=== PATIENT | male | born 1985 | race Caucasian/White ===

== ENCOUNTER 2020-01-17 08:34 | Emergency (ER) | payer OTHER, SELFPAY ==
[2020-01-17 08:40] VITALS: BP 165/98; PULSE 72; RESP 14; TEMP 37.3; O2SAT 100
--- NOTE | 2020-01-17 09:00 | PC.NURSE ---
Pt reports taking 10-12 extra strength tylenol tablets in the past 24 hours. CHECK VIEWER notified. Pt reports 1 episode of vomiting prior to arrival.
--- NOTE | 2020-01-17 09:07 | ED.DENTAL ---
HPI - Dental/Oral General Chief complaint: Dental/Oral Stated complaint: tooth pain Time Seen by Provider: 01/17/20 08:45 Source: patient and RN notes reviewed Mode of arrival: ambulatory Limitations: no limitations History of Present Illness HPI Narrative: Patient presents today complaining of a one-week history of right lower dental pain, worse x2 days, swelling at the gumline. Denies fever, difficulty swallowing, shortness of breath, or any other additional symptoms. He has not seen a dentist in several years. He has been taking Tylenol without much relief. He has taken a total of 5 g of Tylenol in the last 24 hours. MD Complaint: tooth pain Related Data Home Medications Medication Instructions Recorded Confirmed cetirizine mg 01/17/20 clonidine HCl 01/17/20 Allergies Allergy/AdvReac Type Severity Reaction Status Date / Time No Known Allergies Allergy Verified 01/17/20 08:50 Review of Systems Review of Systems: Narrative: CONSTITUTIONAL: Denies body aches, fever, chills, or sweats. EYES: Denies visual changes, redness, or discharge. ENT: Denies rhinorrhea, congestion, sore throat, or otalgia.+ Tooth pain CARDIOVASCULAR: Denies chest pain, palpitations, or edema. RESPIRATORY: Denies cough or dyspnea. GASTROINTESTINAL: Denies abdominal pain, nausea, vomiting, or diarrhea. GENITOURINARY: Denies dysuria or hematuria. SKIN: Denies rash, itching, or wounds. MUSCULOSKELETAL: Denies back pain, joint pain, or myalgia. NEUROLOGIC: Denies headache, numbness, tingling, or weakness. PSYCH: Denies depression or anxiety. [facility] Past Medical History Medical History (Updated 01/17/20 @ 09:14 by Lona Segal, [facility], ) History of cardiac arrest Social History Social History (Updated 01/17/20 @ 09:10 by Lona Segal, [facility], ) Substance use: current Substance use type: marijuana Comments At time of signature, I have reviewed and agree with nursing past medical, surgical, social and family history unless otherwise noted. Please see nursing chart for further information. There is no relevant family history pertinent to the presenting complaint Exam Narrative: Exam Narrative: GENERAL: Well-appearing, well-nourished, and in no acute distress. HEAD: Normocephalic, atraumatic. EYES: EOMI. No redness or drainage. Conjunctivae normal. ENT: Mucous membranes pink and moist. Nares clear. No rhinorrhea. Throat normal. Uvula midline. Tenderness to tooth #28 with large cavity in the center. Center is black in color. Surrounding gingiva is mildly edematous and erythematous. No obvious periapical abscess. No facial swelling noted. No trismus. NECK: Normal AROM. Supple. No lymphadenopathy. CHEST: No respiratory distress. Clear to auscultation. HEART: Regular rate and rhythm. No murmur appreciated. Normal peripheral pulses. EXTREMITIES: Normal range of motion. No edema. SKIN: Warm, dry, no rash. Capillary refill normal. Normal skin turgor. NEURO: No focal deficits. Alert and oriented x3. Gait steady. PSYCH: Normal affect. No signs of depression or anxiety. Course Vital Signs Vital signs: Vital Signs Temperature 99.1 F 01/17/20 08:40 Pulse Rate 72 01/17/20 08:40 Respiratory Rate 14 01/17/20 08:40 Blood Pressure 165/98 H 01/17/20 08:40 Pulse Oximetry 100 01/17/20 08:40 Temperature 99.1 F 01/17/20 08:40 Pulse Rate 72 01/17/20 08:40 Respiratory Rate 14 01/17/20 08:40 Blood Pressure 165/98 H 01/17/20 08:40 Pulse Oximetry 100 01/17/20 08:40 Reviewed. Pt has been instructed to follow up with his PCP regarding his elevated blood pressure today. MDM - Dental/Oral Differential Diagnosis Differential diagnosis: Likely gingival abscess, dental caries, toothache, dental abscess and fracture of tooth Critical Care Time Critical Care Time Critical Care Time: No Discharge Plan Discharge Clinical Impression: Infected dental caries Patient Disposition: Home, Self
== END 2020-01-17 09:22 | disposition home or self-care (01) ==
PROVIDERS: Emergency Provider Nurse Practitioner; PCP Nurse Practitioner Family
DX: K02.9 Dental caries, unspecified (principal)
CPT/HCPCS: 99213; G0463

== ENCOUNTER 2024-03-16 16:03 | Emergency (ER) | payer OTHER, SELFPAY ==
[2024-03-16 16:08] VITALS: BP 146/97; PULSE 75; RESP 20; TEMP 37.2; O2SAT 100
--- NOTE | 2024-03-16 16:24 | ED_ITS ---
HPI - Dental/Oral General Chief complaint: Dental/Oral Stated complaint: infected tooth Time Seen by Provider: 03/16/24 16:24 Source: patient Mode of arrival: ambulatory Limitations: no limitations History of Present Illness HPI Narrative: 38 yo M presents with c/o R upper dental pain for 2 to 3 days. Has called dentist and scheduled appointment. Afebrile. All systems reviewed and negative except as noted above. Related Data Home Medications Medication Instructions Recorded Confirmed clonidine HCl 0.2 mg tablet 0.2 mg PO DIRECTED 03/16/24 03/16/24 Allergies Allergy/AdvReac Type Severity Reaction Status Date / Time No Known Allergies Allergy Verified 03/16/24 16:15 Review of Systems Review of Systems: CONSTITUTIONAL: Denies fever, chills, or sweats. EYES: Denies visual changes, redness, or discharge. ENT: Denies rhinorrhea, congestion, sore throat, or otalgia. Reports right upper dental pain. CARDIOVASCULAR: Denies chest pain, palpitations, or edema. RESPIRATORY: Denies cough or dyspnea. GASTROINTESTINAL: Denies abdominal pain, nausea, vomiting, or diarrhea. GENITOURINARY: Denies dysuria or hematuria. SKIN: Denies rash or itching. MUSCULOSKELETAL: Denies back pain, joint pain, or myalgia. NEUROLOGIC: Denies headache, numbness, or weakness. PSYCHIATRIC: Denies anxiety or depression. All other systems reviewed are negative, except as documented in HPI. [facility] Past Medical History Medical History (Updated 03/16/24 @ 16:31 by Lavonne Olvera NP) History of cardiac arrest Social History Social History (Updated 01/17/20 @ 09:10 by Lona Segal, [facility], ) Substance use: current Substance use type: marijuana Comments At time of signature, agree with nursing past medical, surgical, social and family history. There is no relevant family history pertinent to the presenting complaint. Exam Narrative: GENERAL: This is a well-nourished, well-developed patient, in no apparent distress. HEAD: normocephalic, atraumatic. EYES: PERRL. Sclera clear/white. Vision is grossly intact. EARS: External ears normal NOSE: External nose normal MOUTH: multiple broken/decayed teeth. Tooth #7, 8, 9 broken down to gumline. mile swelling noted with no fluctuance. NECK: Neck supple, non-tender without lymphadenopathy, masses or thyromegaly. CARDIOVASCULAR: Regular rate and rhythm without murmurs, gallops, or rubs. RESPIRATORY: Clear to auscultation. Breath sounds equal bilaterally. No wheezes, rales, or rhonchi. SKIN: warm, Dry, intact with no suspicious lesions or rash, good texture and turgor. NEURO: awake, alert, and oriented to person, place and time. There were no obvious focal neurologic abnormalities. EXTREMITIES: No joint tenderness, effusion, or edema noted. Course Course Level of Care: Express Care Visit Vital Signs Vital signs: Vital Signs Temperature 37.2 C 03/16/24 16:08 Pulse Rate 75 03/16/24 16:08 Respiratory Rate 20 03/16/24 16:08 Blood Pressure 146/97 H 03/16/24 16:08 Pulse Oximetry 100 03/16/24 16:08 Oxygen Delivery Room Air 03/16/24 16:08 Temperature 37.2 C 03/16/24 16:08 Pulse Rate 75 03/16/24 16:08 Respiratory Rate 20 03/16/24 16:08 Blood Pressure 146/97 H 03/16/24 16:08 Pulse Oximetry 100 03/16/24 16:08 Oxygen Delivery Room Air 03/16/24 16:08 Reviewed Discharge Plan Discharge Clinical Impression: Dental infection Patient Disposition: Home, Self-Care Condition: Stable Instructions: Antibiotic Form, Toothache (ED) Additional Instructions: Take antibiotic as prescribed until gone. Take antibiotic with full glass of water. Alternate between ibuprofen and Tylenol every four hours to treat pain. Follow-up with dentist at next available appointment. Prescriptions: New clindamycin HCl 300 mg capsule 300 mg PO Q6H 10 Days Qty: 40 0RF No Action clonidine HCl 0.2 mg tablet 0.2 mg PO DIRECTED Follow-up/Referrals: Harms,Eduardo Samuel M.D. [Primary Care Provider] - Time of Disposition: 16:31
== END 2024-03-16 16:35 | disposition home or self-care (01) ==
PROVIDERS: Emergency Provider Nurse Practitioner Family; PCP Family Medicine
DX: K04.7 Periapical abscess without sinus (principal); F12.90 Cannabis use, unspecified, uncomplicated; Z86.74 Personal history of sudden cardiac arrest
CPT/HCPCS: 99213; G0463

== ENCOUNTER 2024-11-22 19:39 | Emergency (ER) | payer OTHER, SELFPAY ==
--- OUTSIDE RECORDS SUMMARY | 2024-11-22 19:40 | XMS_ITS | Clinical Summary ---
Author Organization [facility] Address [address] [place] [address] Care Team Providers Care Software Technical Lead Name Role Phone Eduardo Ramirez MD Unavailable [phone] Eduardo Ramirez MD Primary Care Provider [phone] Allergies No known active allergies Medications buprenorphine-n aloxone (SUBOXONE) 8-[address] 1 Film under the tongue 2 (two) times a day 30 Film 1 0 Active Additional Information Patient not taking.Reported on 05/18/2024 cetirizine (ZyrTEC) 10 mg tablet Take by mouth 1 Active ergocalciferol (VITAMIN D) 50,000 unit capsule Take by mouth 0 Active methadone (DOLOPHINE) 5 mg tablet 20 tablets (100 mg total) 1 Active FLUoxetine (PROzac) 20 mg capsule Take 1 capsule (20 mg total) by mouth every morning 2 Active amitriptyline (ELAVIL) 25 mg tabletIndicatio ns:Chronic migraine without aura without status migrainosus, not intractable Take one tablet po qhs for one week, then two tablets po qhs 60 tablet 3 2 Active Additional Information Patient taking differently: 25 mg oral Nightly PRN, Take one tablet po qhs for one week, then two tablets po qhs, Reported on 05/18/2024 SUMAtriptan (IMITREX) 100 mg tabletIndicatio ns:Migraine Take one tabet po q2h prn as soon as feel headache is coming. No more than 2 tablets in 24 hours. 9 tablet 3 2 Active atenoloL (TENORMIN) 25 mg tablet 1 tablet (25 mg total) 3 Active ibuprofen (ADVIL,MOTRIN) 800 mg tablet Take 1 tablet (800 mg total) by mouth 3 (three) times a day as needed 3 Active triamcinolone (KENALOG) 0.5 % creamIndication s:Ringworm Apply topically 2 (two) times a day for 7 days 30 g 4 Active Additional Information Patient not taking.Reported on 05/18/2024 ketoconazole (NIZORAL) 2 % cream APPLY TOPICALLY TO THE AFFECTED AREA DAILY FOR 2 WEEKS 4 Active penicillin v potassium (VEETID) 500 mg tablet TAKE 1 TABLET BY MOUTH EVERY 8 HOURS FOR 10 DAYS 4 Active lisinopriL (PRINIVIL,ZESTR IL) 30 mg tablet Take 1 tablet (30 mg total) by mouth daily 90 tablet 4 4 Active cloNIDine (CATAPRES) 0.2 mg tablet Take 1 tablet (0.2 mg total) by mouth 2 (two) times a day 60 tablet 3 5 Active cloNIDine (CATAPRES) 0.2 mg tablet Take 1 tablet (0.2 mg total) by mouth 2 (two) times a day 60 tablet 3 4 025 Discontin ued(Reord er) Active Problems Problem Noted Date Diagnosed Date Hypertension, essential 05/31/2024 Assessment & Plan (05/31/2024 9:23 AM CHUTE TENDER): Stable on multiple agents and will montior response. No change and will follow response. Scrotal swelling 05/31/2024 Assessment & Plan (05/31/2024 9:23 AM CHUTE TENDER): Reviewed ultrasound. Continue f/uw with urology for adenomatoid and scrtoal cysts. BMI 26.0-26.9,adult 05/31/2024 Assessment & Plan (05/31/2024 9:23 AM CHUTE TENDER): Not a clinical issue. Mood disorder 11/07/2023 Assessment & Plan (05/31/2024 9:23 AM CHUTE TENDER): Off SSRI and will continue to ofllow. Denies any increased mood change. Impaired cognition 03/25/2023 Chronic migraine without aur a without status migrainosus, not intractable 09/01/2021 Memory loss 09/01/2021 Umbilical hernia without obstruction or gangrene 01/24/2021 Assessment & Plan (01/24/2021 10:30 AM CDT): Minimally symptomatic, we discussed the procedure of open umbilical hernia repair likely with mesh, along with the post operative period. We also discussed the concern over smoking with this problem. The risks and benefits of the procedure were discussed with the patient and his mother. We also discussed obstructive symptoms in which to be concerned for, to which they understand. All questions adressed. Patient wishes to call later to schedule. Scrotal mass 10/12/2020 Methadone dependence 05/10/2017 History of heroin abuse 05/10/2017 Carpal tunnel syndrome, bilateral 05/10/2017 Severe anxiety with panic 12/18/2016 Lumbar disc herniation 09/20/2016 Overview (03/25/2023): L4-5 on MRI 2015 HTN (hypertension), benign 09/20/2016 Chronic low back pain with sciatica 08/23/2016 Adolescent idiopathic scoliosis of thoracolumbar region 08/23/2016 Multiple hemangiomas 02/22/2016 Depression, major 09/28/2013 Cavernous hemangioma of skin 09/28/2013 Overview (03/25/2023): Multiple, congenital, familial? Resolved Problems Problem Noted Date Diagnosed Date Resolved Date Acute respiratory failure with hypoxia 06/02/2019 11/07/2023 Ventricular tachycardia 06/02/2019 0804/2023 Immunizations Immunization Administration Dates Next Due DTP 07/11/1992, 9,03/07/1988,01/09,1987 Hep B, Adolescent or Pediatric 08/18/1998,1997,12/23/1997 HiB 04/25/1990,03/30/1989 Influenza, Quadrivalent, Spl it, Intramuscular 01/07/2020,12/30/2018,06/13/2018 Influenza, Unspecified 05/18/2024(Deferr ed: Patient Refused),03/25/2023(Deferred: Patient Refused),04/08/2022(Deferred: Patient Refused),03/25/2022(Deferred: Patient Refused),04/08/2021(Deferred: Patient Refused),12/26/2018 MMR 07/11/1992,04/25/1989 OPV 07/11/1992, 9,01/10/1988,11/15 Td, adsorbed 02/11/2002 Tdap 02/20/2023(Deferred: Patient Refused - pt states he has had a Tetnus shot within the last 5 years),07/24/2018 Medical History Medical History Date Comments Hypertension Drug use Angina pectoris Arrhythmia Peptic ulceration Erectile dysfunction Back pain Visual impairment Anxiety Depression Family History Medical History Relation Name Comments Diabetes Father Heart disease Father Relation Name Status Comments Father Social History Tobacco Use Types Packs/Day Years Used Date Smoking Tobacco: Never Smokeless Tobacco: Never Tobacco Cessation:Counseling Given: Not Answered Alcohol Use Standard Drinks/Week Comments Not Currently 0 (1 standard drink = 0.6 oz pur e alcohol) [facility] Glycode[employer] Answer Date Recorded In the past 12 months has [facility] [employer], gas, oil, or water [employer] threatened to shut off services in your home? No 05/18/2024 Humiliation, Afraid, Rape, and Kick questionnair e Answer Date Recorded Within the last year, have y ou been afraid of your partner or ex-partner? No 05/18/2024 Within the last year, have y ou been humiliated or emotionally abused in other ways by your partner or ex-partner? No Within the last year, have y ou been kicked, hit, slapped, or otherwise physically hurt by your partner or ex-partner? No 05/18/2024 Within the last year, have y ou been raped or forced to have any kind of sexual activity by your partner or ex-partner? No 05/18/2024 Social Connection and Isolation Panel Answer Date Recorded In a typical week, how many times do you talk on the phone with family, friends, or neighbors? More than three times a week 05/18/2024 How often do you get togethe r with friends or relatives? More than three times a week 05/18/2024 How often do you attend chur or baptist services? More than 4 times per year 05/18/2024 Do you belong to any clubs o r organizations such as bahai groups, unions, fraternal or athletic groups, or school groups? No 05/18/2024 How often do you attend meet ings of the clubs or organizations you belong to? Never 05/18/2024 Are you , , di vorced, , never , or living with a partner? 05/18/2024 AUDIT-C Answer Date Recorded Q1: How often do you have a drink containing alcohol? Never 05/18/2024 Q2: How many drinks containi ng alcohol do you have on a typical day when you are drinking? Patient does not drink Q3: How often do you have si x or more drinks on one occasion? Never 05/18/2024 Overall Financial Resource Strain (CARDIA) Answe r Date Recorded How hard is it for you to pa y for the very basics like food, housing, medical care, and heating? Somewhat hard 05/18/2024 PHQ-2 Answer Date Recorded PHQ-2 Total Score (If total score is 3 or more points, staff should administer the PHQ-9) 0 05/18/2024 [facility] - Occupational Stress Questionnaire Answer Date Recorded Do you feel stress - tense, restless, nervous, or anxious, or unable to sleep at night because your mind is troubled all the time - these days? To some extent 05/18/2024 Exercise Vital Sign Answer Date Recorde d On average, how many days pe r week do you engage in moderate to strenuous exercise (like a brisk walk)? 0 days 05/18/2024 On average, how many minutes do you engage in exercise at this level? 0 min 05/18/2024 Hunger Vital Sign Answer Date Recorded Within the past 12 months, y ou worried that your food would run out before you got the money to buy more. Never true 05/18/19 25 Within the past 12 months, t he food you bought just didn't last and you didn't have money to get more. Never true 05/18/2024 PRAPARE - Transportation Answer Date Re corded In the past 12 months, has l ack of transportation kept you from medical appointments or from getting medications? No 05/09 In the past 12 months, has l ack of transportation kept you from meetings, work, or from getting things needed for daily living? No 05/18/2024 PHQ-9 Answer Date Recorded PHQ-9 Total Score 0 05/18/2024 Housing Stability Vital Sign Answer Marco e Recorded In the last 12 months, was t here a time when you were not able to pay the mortgage or rent on time? No 05/18/2024 In the past 12 months, how m any times have you moved where you were living? 0 05/18/2024 At any time in the past 12 m [facility], were you homeless or living in a longterm (including now)? No 05/18/2024 Personal Safety Answer Date Recorded Have you ever been in or are you currently in a harmful physical or emotional relationship or is someone making you feel afraid or unsafe? Denies 02/20/2023 Sex and Gender Information Value Date Recorded Sex Assigned at Not on file Legal Sex Male 5:34 PM CHUTE TENDER Gender Identity Not on file Sexual Orientation Not on file Obstetrics History Last Filed Vital Signs Vital Sign Reading Time Taken Comments Blood Pressure 136/90 05/18/2024 2:02 PM CHUTE TENDER Pulse 76 05/18/2024 1:49 PM CHUTE TENDER Temperature 36.1 C (97 F) 05/18/2024 1:49 PM CHUTE TENDER Respiratory Rate 18 05/18/2024 1:49 PM CHUTE TENDER Oxygen Saturation 97% 05/18/2024 1:49 PM CHUTE TENDER Inhaled Oxygen Concentration - - Weight 105.7 kg (233 lb) 05/18/2024 1:49 PM CHUTE TENDER Height 198.1 cm (6' 6) 05/18/2024 1:49 PM CHUTE TENDER Body Mass Index 26.93 05/18/2024 1:49 PM CHUTE TENDER Plan of Treatment Health Maintenance Due Date Last Done Comments Varicella Vaccines (1 of 2 - 13+ 2-dose series) 09/03/2000 Regular Well Visit/Exam 18-64 09/03/2005 HPV Vaccines (1 - 3-dose SCDM series) 09/03/2014 Influenza Vaccine (#1) 2024 , 12/30/2018, 12/26/2018, Additional history exists Depression Screening 05/18/2025 05/18/2024, 11/06/2023, 09/18/2022 DTaP/Tdap/Td Vaccine (7 - Td or Tdap) 07/24/2028 07/24/2018, 02/11/2002, 07/11/1992, Additional history exists Hepatitis B Screening Completed 08/18/1998 , 02/17/1998, 12/23/1997 Hepatitis C Screening Completed 05/26/2019 Pneumococcal vaccine <65 Aged Out No longer eligible based on patient's age to complete this topic Medical Devices Implanted Type Area Nuclear Worker Technician Device Identifier Shelf Expiration Date Model / Serial / Lot [employer] [id number] Angio-Seal Evolution 6fr .035in Guidewire Bypass Tube Suture - [id number] Implanted:Qty: 1 on 06/15/2019 by Senthil Ospina MD at [facility] [employer] 01/06/2020 [id number] / / [id number] Procedures Procedure Name Priority Date/Time Associated Diagnosis Comments HEPATITIS PANEL, ACUTE Routine 05/26/2019 3:49 PM CHUTE TENDER from Last 3 Months or Most Recently Relevant to Health Maintenance Results * Hepatitis panel, acute (05/26/2019 3:49 PM CHUTE TENDER) Hep A IgM Nonreactive Nonreactive [facility] Comment: Interpretive Data If test is reported as GRAYZONE, new sample should be drawn in two weeks for testing. Current interpretive data was last revised on 2016. Hep B core IgM Nonreactive Nonreactive [facility] Comment: Interpretive Data If test is reported as GRAYZONE, new sample should be drawn for testing. Current interpretive data was last revised on 2016. Hep C Ab Nonreactive Nonreactive [facility] Comment: Interpretive Data Positive results should be confirmed by a molecular method. If positive, a second separately collected sample should be submitted for Hepatitis C Virus (HCV) RNA Detection and Quantitation by Real-Time Reverse Vacuum Drum Drier Operator-PCR (RT-PCR). Current interpretive data was last revised on 2016. HepBsAg Nonreactive Nonreactive [facility] Blood specimen (specimen) 05/26/2019 3:49 PM CHUTE TENDER 05/26/2019 4:03 PM CHUTE TENDER us Jonnathan Monae NP LAB MICROBIOL OGY - GENERAL ORDERABLES Edited Result - Final [facility] Department [place] [address] from Last 3 Months or Most Recently Relevant to Health Maintenance Insurance [facility] MEDICAID [facility] Advance Directives For more information, please contact: [phone] * Full Code (Latest Code Status on File) Date Activated Date Inactivated Comments 05/26/2019 1:48 PM 06/19/2019 8:33 PM Care Teams Software Technical Lead Relationship Specialty Start Date End Date Eduardo Ramirez [place] [address] PCP - General Family Medicine 6/13/23 Eduardo Ramirez MD [address] [place] [address] Family Medicine 05/26/19
--- OUTSIDE RECORDS SUMMARY | 2024-11-22 19:40 | XMS_ITS | Clinical Summary ---
Author Organization [facility] Address [address] [place] [address] Phone Care Team Providers Care Pc Technician Name Role Phone Asim Moore MD Unavailable Eduardo Ramirez MD Primary Care Provider [phone] Jonnie Lyon MD Unavailable Allergies No known active allergies Medications cetirizine (ZyrTEC) 10 MG Tablet Take 10 mg by mouth daily. Active cloNIDine (CATAPRES) 0.1 MG Tablet Take 0.1 mg by mouth daily. Active ergocalciferol (VITAMIN D) 27198 UNIT Capsule Take 1.25 mg by mouth. Active lisinopril (PRINIVIL, ZESTRIL) 10 MG Tablet Take 5 mg by mouth daily. Active METHADONE HCL PO Take by mouth. Liquid 90mg Active lamoTRIgine (LaMICtal) 100 MG Tablet Take 1 Tablet by mouth 2 times daily. 60 Tablet 2 02/15/2022 Active SUMAtriptan (IMITREX) 50 MG Tablet Take 1 Tablet by mouth once as needed for Migraine for up to 18 doses. Use as directed. May repeat dose in 2 hours if headache recurs. 9 Tablet 1 08/28/2022 Active amitriptyline (ELAVIL) 25 MG Tablet Take 1 Tablet by mouth nightly. 90 Tablet 05/08/2023 Active Active Problems No known active problems Family History Medical History Relation Name Comments Coronary Artery Disease Father Depression Father Diabetes Father Heart Disease Father High Cholesterol Father Hypertension Father Kidney Disease Father Migraines Father Hypertension Mother Migraines Mother Relation Name Status Comments Father Mother Alive Social History Tobacco Use Types Packs/Day Years Used Date Smoking Tobacco: Never Smokeless Tobacco: Never Tobacco Cessation:Counseling Given: Not Answered Alcohol Use Standard Drinks/Week Comments Yes 0 (1 standard drink = 0.6 oz pur e alcohol) rarely Sex and Gender Information Value Date Recorded Sex Assigned at Not on file Legal Sex Male 10:23 PM CDT Gender Identity Not on file Sexual Orientation Not on file Last Filed Vital Signs Vital Sign Reading Time Taken Comments Blood Pressure 112/74 05/06/2024 10:09 AM BAKERY MACHINE MECHANIC Pulse 75 05/06/2024 10:09 AM BAKERY MACHINE MECHANIC Temperature 37 C (98.6 F) 08/28/2022 10:16 AM CDT Respiratory Rate 20 05/06/2024 10:0 9 AM BAKERY MACHINE MECHANIC Oxygen Saturation 98% 05/06/2024 10: 09 AM BAKERY MACHINE MECHANIC Inhaled Oxygen Concentration - - Weight 107.1 kg (236 lb 3.2 oz) 025 10:09 AM BAKERY MACHINE MECHANIC Height 198.1 cm (6' 6) 05/06/2024 10:0 9 AM BAKERY MACHINE MECHANIC Body Mass Index 27.3 05/06/2024 10:09 AM BAKERY MACHINE MECHANIC Plan of Treatment Health Maintenance Due Date Last Done Comments Hepatitis C Virus (HCV) Screening 1987 Human Papillomavirus (HPV) Immunization (1 - 3-dose SCDM series) 09/03/2014 SARS-COV-2 Immunization ( season) 2023 Influenza Immunization (#1) 2024 10/0 04/2019, 12/30/2018, 12/26/2018, Additional history exists Respiratory Syncytial Virus (RSV) Immunization (Adult) (1 - 1-dose 75+ series) 09/03/2062 Hepatitis B Immunization Completed 999, 02/17/1998, 12/23/1997 DTaP/Tdap/Td Immunization Discontinued 2018, 02/11/2002, 07/11/1992, Additional history exists TdaP Immunization Completed 07/24/2018 Meningococcal Immunization (ACWY) Aged Out No longer eligible based on patient's age to complete this topic Pneumococcal Immunization Combined Aged Out No longer eligible based on patient's age to complete this topic Rotavirus Immunization Aged Out No lo nger eligible based on patient's age to complete this topic Insurance MEDICAID [place] Care Teams Pc Technician Relationship Specialty Start Date End Date Eduardo Ramirez MD [address] [place] [address] PCP - General Internal Medicine 05/06/24 Asim Moore MD [address] [place] [address] Consulting Physician Neurology 01/21/23 Jonnie Lyon MD [address] [place] [id number] Consulting Physician Urology 05/06/24
--- OUTSIDE RECORDS SUMMARY | 2024-11-22 19:40 | XMS_ITS | Encounter Summary ---
Author Organization [facility] Address [address] [place] [address] Care Team Providers Care Middle School Science Teacher Name Role Phone Varinder Novoa MD Primary Care Provider [phone] Encounter Details Date Type Department Care Team (Late st Contact Info) Description 01/04/2003 Outpatient Historical [facility] Pediatrics [address] [place] [address] Jarett Gerardo MD [address] [place] [address] [address] [address] Social History Tobacco Use Types Packs/Day Years Used Date Smoking Tobacco: Never Assessed Sex and Gender Information Value Date Recorded Sex Assigned at Not on file Legal Sex Male 4:29 AM FIELD COUNSEL Gender Identity Not on file Sexual Orientation Not on file documented as of this encounter Plan of Treatment Not on file documented as of this encounter Visit Diagnoses Not on filedocumented in this encounter Care Teams Middle [employer] Science Teacher Relationship Specialty [place] [address] [facility] [place] [address] PCP - General Family Practice 09/28/13 documented as of this encounter
--- OUTSIDE RECORDS SUMMARY | 2024-11-22 19:40 | XMS_ITS | Encounter Summary ---
Author Organization [facility] Address [address] [place] [address] Care Team Providers Care Pediatric Oncology Nurse Name Role Phone Varinder Novoa MD Primary Care Provider [phone] Encounter Details Date Type Department Care Team (Late st Contact Info) Description 06/29/[address] [facility] Pediatrics [address] [place] [address] Clark Cespedes MD [address] [place] [address] Social History Tobacco Use Types Packs/Day Years Used Date Smoking Tobacco: Never Assessed Sex and Gender Information Value Date Recorded Sex Assigned at Not on file Legal Sex Male 4:29 AM PLAYBACK OPERATOR Gender Identity Not on file Sexual Orientation Not on file documented as of this encounter Plan of Treatment Not on file documented as of this encounter Visit Diagnoses Not on filedocumented in this encounter Care Teams Pediatric Oncology Nurse Relationship Specialty [place] [address] [facility]. [address] [place] [address] PCP - General Family Practice 09/28/13 documented as of this encounter
--- OUTSIDE RECORDS SUMMARY | 2024-11-22 19:40 | XMS_ITS | Encounter Summary ---
Author Organization [facility] Address [address] [place] [address] Care Team Providers Care Drywall Contractor Name Role Phone Varinder Novoa MD Primary Care Provider [phone] Encounter Details Date Type Department Care Team (Late st Contact Info) Description 10/13/2002 Outpatient Historical [facility] Pediatrics [address] [place] [address] Jarett Gerardo MD [address] [place] [address] [address], [place] [address] Social History Tobacco Use Types Packs/Day Years Used Date Smoking Tobacco: Never Assessed Sex and Gender Information Value Date Recorded Sex Assigned at Not on file Legal Sex Male 4:29 AM BALLAST INSPECTOR Gender Identity Not on file Sexual Orientation Not on file documented as of this encounter Plan of Treatment Not on file documented as of this encounter Visit Diagnoses Not on filedocumented in this encounter Care Teams Drywall Contractor Relationship Specialty [place] [address] [facility] [place] [address] PCP - General Family Practice 09/28/13 documented as of this encounter
--- OUTSIDE RECORDS SUMMARY | 2024-11-22 19:40 | XMS_ITS | Encounter Summary ---
Author Organization [facility] Address [address] [place] [address] Care Team Providers Care Health Center Assistant Name Role Phone Varinder Novoa MD Primary Care Provider [phone] Encounter Details Date Type Department Care Team (Late st Contact Info) Description 06/09/2003 Outpatient Historical [facility] Pediatrics [address] [place] [address] Jarett Gerardo MD [address] [place] [address] [address], [place] [address] Social History Tobacco Use Types Packs/Day Years Used Date Smoking Tobacco: Never Assessed Sex and Gender Information Value Date Recorded Sex Assigned at Not on file Legal Sex Male 4:29 AM STORAGE CONSULTANT Gender Identity Not on file Sexual Orientation Not on file documented as of this encounter Plan of Treatment Not on file documented as of this encounter Visit Diagnoses Not on filedocumented in this encounter Care Teams Health Center Assistant Relationship Specialty [place] [address] [facility]. [address] [place] [address] PCP - General Family Practice 09/28/13 documented as of this encounter
--- OUTSIDE RECORDS SUMMARY | 2024-11-22 19:40 | XMS_ITS | Encounter Summary ---
Author Organization [facility] Address [address] [place] [address] Care Team Providers Care Anthropologist Physical Name Role Phone Varinder Novoa MD Primary Care Provider [phone] Encounter Details Date Type Department Care Team (Late st Contact Info) Description 02/15/2003 Outpatient Historical [facility] Pediatrics [address] [place] [address] Jarett Gerardo MD [address] [place] [address] [address] [address] Social History Tobacco Use Types Packs/Day Years Used Date Smoking Tobacco: Never Assessed Sex and Gender Information Value Date Recorded Sex Assigned at Not on file Legal Sex Male 4:29 AM CENSUS ENUMERATOR Gender Identity Not on file Sexual Orientation Not on file documented as of this encounter Plan of Treatment Not on file documented as of this encounter Visit Diagnoses Not on filedocumented in this encounter Care Teams Anthropologist Physical Relationship Specialty [place] [address] [facility]. [address] [place] [address] PCP - General Family Practice 09/28/13 documented as of this encounter
--- OUTSIDE RECORDS SUMMARY | 2024-11-22 19:40 | XMS_ITS | Encounter Summary ---
Author Organization [facility] Address [address] [place] [address] Care Team Providers Care Demand Planning Manager Name Role Phone Varinder Novoa MD Primary Care Provider [phone] Encounter Details Date Type Department Care Team (Late st Contact Info) Description 03/23/2003 Outpatient Historical [facility] Pediatrics [address] [place] [address] Jarett Gerardo MD [address] [place] [address] [address] [address] Social History Tobacco Use Types Packs/Day Years Used Date Smoking Tobacco: Never Assessed Sex and Gender Information Value Date Recorded Sex Assigned at Not on file Legal Sex Male 4:29 AM IRONING MACHINE OPERATOR Gender Identity Not on file Sexual Orientation Not on file documented as of this encounter Plan of Treatment Not on file documented as of this encounter Visit Diagnoses Not on filedocumented in this encounter Care Teams Demand Planning Manager Relationship Specialty [place] [address] [facility]. [address] [place] [address] PCP - General Family Practice 09/28/13 documented as of this encounter
--- OUTSIDE RECORDS SUMMARY | 2024-11-22 19:40 | XMS_ITS | Encounter Summary ---
Author Organization [facility] Address [address] [place] [address] Care Team Providers Care Enterprise Application Developer Name Role Phone Varinder Novoa MD Primary Care Provider [phone] Encounter Details Date Type Department Care Team (Late st Contact Info) Description 11/30/2002 Outpatient Historical [facility] Pediatrics [address] [place] [address] Jarett Gerardo MD [address] [place] [address] [address] [address] Social History Tobacco Use Types Packs/Day Years Used Date Smoking Tobacco: Never Assessed Sex and Gender Information Value Date Recorded Sex Assigned at Not on file Legal Sex Male 4:29 AM DIRECTOR CORPORATE SECURITY Gender Identity Not on file Sexual Orientation Not on file documented as of this encounter Plan of Treatment Not on file documented as of this encounter Visit Diagnoses Not on filedocumented in this encounter Care Teams Enterprise Application Developer Relationship Specialty [place] [address] [facility]. [address] [place] [address] PCP - General Family Practice 09/28/13 documented as of this encounter
--- OUTSIDE RECORDS SUMMARY | 2024-11-22 19:40 | XMS_ITS | Encounter Summary ---
Author Organization [facility] Address [address] [place] [address] Care Team Providers Care Heel Reducer Name Role Phone Varinder Novoa MD Primary Care Provider [phone] Encounter Details Date Type Department Care Team (Late st Contact Info) Description 07/01/2003 Outpatient Historical [facility] Clark Cespedes MD [address] [facility] [address] [place] [address] HEADACHE (Primary Dx) Social History Tobacco Use Types Packs/Day Years Used Date Smoking Tobacco: Never Assessed Sex and Gender Information Value Date Recorded Sex Assigned at Not on file Legal Sex Male 4:29 AM PHARMACEUTICAL SALES Gender Identity Not on file Sexual Orientation Not on file documented as of this encounter Plan of Treatment Not on file documented as of this encounter Visit Diagnoses Diagnosis Headache(784.0)- Primary Headache documented in this encounter Care Teams Heel Reducer Relationship Specialty [place] [address] [facility]. [address] [place] [address] PCP - General Family Practice 09/28/13 documented as of this encounter
[2024-11-22 19:41] VITALS: BP 141/83; PULSE 69; RESP 18; TEMP 36.3; O2SAT 100
--- OUTSIDE RECORDS SUMMARY | 2024-11-22 19:41 | XMS_ITS | Clinical Summary ---
Author Organization [facility] Address [address] [place] [address] Care Team Providers Care Icu Nurse Name Role Phone Varinder Novoa MD Primary Care Provider [phone] Allergies No known active allergies Medications amitriptyline (ELAVIL) 50 mg tablet 6 Active diclofenac sodium (VOLTAREN) 1 % gel Apply 4 Grams to affected area 4 times daily as needed for Pain or Discomfort For back muscle soreness.. 100 Gram 3 7 Active baclofen (LIORESAL) 20 mg tablet Take 1 Tablet (20 mg) by mouth 3 times daily as needed for Pain. 90 Tablet 7 Active busPIRone (BUSPAR) 10 mg tabletIndicatio ns:Severe anxiety with panic Take 1 Tablet (10 mg) by mouth 3 times daily. 90 Tablet 3 7 Active methadone (DOLOPHINE) 10 mg Tablet Take 150 mg by mouth daily. Active DULoxetine (CYMBALTA) 60 mg Capsule, Delayed Release(E.C.)In dications:Recur rent major depressive disorder, in partial remission Take 1 Capsule (60 mg) by mouth daily. 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 Resolved Problems Problem Noted Date Diagnosed Date Resolved Date Back pain 09/28/2013 08/23/2016 Scoliosis 09/28/2013 08/23/2016 Family History Medical History Relation Name Comments Diabetes Father Relation Name Status Comments Father Social History Tobacco Use Types Packs/Day Years Used Date Smoking Tobacco: Former Smokeless Tobacco: Never Tobacco Cessation:Counseling Given: No Alcohol Use Standard Drinks/Week Comments Yes 0 (1 standard drink = 0.6 oz pur e alcohol) Sex and Gender Information Value Date Recorded Sex Assigned at Not on file Legal Sex Male 4:29 AM CORPORATE GENERAL MANAGER Gender Identity Not on file Sexual Orientation Not on file Last Filed Vital Signs Vital Sign Reading Time Taken Comments Blood Pressure 128/80 05/10/2017 10:54 AM CORPORATE GENERAL MANAGER Pulse 70 05/10/2017 10:54 AM CORPORATE GENERAL MANAGER Temperature 36.3 C (97.4 F) 05/10/2017 10:54 AM CORPORATE GENERAL MANAGER Respiratory Rate - - Oxygen Saturation 98% 05/10/2017 10:54 AM CORPORATE GENERAL MANAGER Inhaled Oxygen Concentration - - Weight 99.3 kg (219 lb) 05/10/2017 10:54 AM CORPORATE GENERAL MANAGER Height 198.1 cm (6' 6) 05/10/2017 10:54 AM CORPORATE GENERAL MANAGER Body Mass Index 25.31 05/10/2017 10:54 AM CORPORATE GENERAL MANAGER Plan of Treatment Health Maintenance Due Date Last Done Comments HPV VACCINES (1 - Male 3-dose series) 09/03/2002 DTAP/TDAP/TD VACCINES (1 - Tdap) 09/03/2006 HEPATITIS B VACCINES (1 of 3 - 19+ 3-dose series) 08/07 INFLUENZA VACCINE (#1) 2024 Care Teams Icu Nurse Relationship Specialty [place] [address] [facility] [place] [address] PCP - General Family Practice 09/28/13
--- OUTSIDE RECORDS SUMMARY | 2024-11-22 19:41 | XMS_ITS | Patient Health Record ---
Author Organization [facility] Address [address] [place] [address] Care Team Providers Care Shear Assembler Name Role Phone Sunil Homa Primary Care Provider [phone] [facility], [facility] Unavailable U navailable Reason For Referral No Information Medications Medication SIG (Take, Route, Fr equency, Duration) Notes Start Date End Date Status Amitriptyline HCl 50 MG 1 tablet Orally at bedtime; Duration: 30 days 02/08/2016 Active Problems Problem Type SNOMED Code ICD Code Onset Dates Problem Status W/U Status Risk Notes Problem Posttraumatic stress disorder (06719766) PTSD (post-traumati c stress disorder) (F43.10) Active confirmed Problem Anxiety (61706053) Anxiety (F41.9) Active confirmed Problem Psychoactive substance dependence (8220967) Chemical dependency (F19.20) Active confirmed Problem Substance dependence (6791930717) Substance dependence (F19.20) Active confirmed Plan Of Treatment Future Test Test Name Order Date Hemoglobin A1c* 02/03/2016 Vitamin B12* 02/03/2016 Vitamin D, 25-Hydroxy* 02/03/2016 Hepatitis Panel (4)* 02/03/2016 CMP14+LP+CBC/D/Plt+T4+TSH 02/03/2016 Insurance Providers Payer Name Payer Address Payer Phone Subscriber Number Group Number Insured Name Patient Relationship to Insured Coverage Start Date Coverage End Date [facility] [address] [place] [address] [id number] Shemar Clinton Self - patient is the insured 6 Medical (General) History Medical History History ICD Code Scolosis Hyperhydrosis
--- NOTE | 2024-11-22 19:53 | ED_ITS ---
HPI - General Adult General Chief complaint: Dental/Oral Stated complaint: Toothache Source: patient Mode of arrival: ambulatory Limitations: no limitations History of Present Illness HPI narrative: Patient presents for evaluation of right upper dental pain. Symptom onset last night. He took some penicillin that he had left over which seemed to help. He is requesting prescription for antibiotics. He states that his pain is 6/10 severity and throbbing. He has been taking Tylenol for symptoms. No fever, chills, nausea, vomiting. He does not smoke cigarettes but smokes marijuana. He is attempting to get an appointment with a dentist. Related Data Home Medications ?Medication ?Instructions ?Recorded ?Confirmed ?Last Taken ?Type clonidine HCl 0.2 mg tablet 0.2 mg PO DIRECTED 03/16/24 03/16/24 Unknown History methadone 11/22/24 Unknown History Allergies Allergy/AdvReac Type Severity Reaction Status Date / Time No Known Allergies Allergy Verified 11/22/24 19:48 Review of Systems Review of Systems: CONSTITUTIONAL: Denies fever, chills, or sweats. EYES: Denies visual changes, redness, or discharge. ENT: Reports right upper dental pain. Denies rhinorrhea, congestion, sore throat, or otalgia. CARDIOVASCULAR: Denies chest pain, palpitations, or edema. RESPIRATORY: Denies cough or dyspnea. GASTROINTESTINAL: Denies abdominal pain, nausea, vomiting, or diarrhea. GENITOURINARY: Denies dysuria or hematuria. SKIN: Denies rash or itching. MUSCULOSKELETAL: Denies back pain, joint pain, or myalgia. NEUROLOGIC: Denies headache, numbness, dizziness, or weakness. PSYCHIATRIC: Denies anxiety or depression. [facility] Past Medical History Medical History History of cardiac arrest Surgical History Surgical History No pertinent past surgical history Family History Family History (Updated 11/22/24 @ 19:54 by BECK Sanderson, JENNIFER) Mother Family history non-contributory Social History Social History (Updated 11/22/24 @ 19:54 by BECK Sanderson, JENNIFER) Substance use: current Substance use type: marijuana Gender identity (if verbalized by the patient): Male Spiritual care concerns: No Exam Narrative: GENERAL: Well-appearing, well-nourished, and in no acute distress. HEAD: Normocephalic, atraumatic. EYES: PERRLA and EOMI. ENT: Nares clear, no rhinorrhea or epistaxis. Mucous membranes moist. There are multiple missing and fractured teeth. Tooth #7 is fractured. There is diffuse dental decay. No visible or palpable abscess. Oropharynx without tonsillar hypertrophy exudate or other lesions. Bilateral TMs pearly [place] nonbulging NECK: Supple. No adenopathy or masses. No carotid bruits or JVD CHEST: Clear to auscultation. No respiratory distress. No wheezes rales or rhonchi HEART: Regular rate and rhythm. No murmur heard. Normal peripheral pulses. ABDOMEN: Soft, nontender, nondistended, normal active bowel sounds. EXTREMITIES: Normal range of motion. No edema. SKIN: Warm, dry, no rash. NEURO: No focal deficits. Alert and oriented x3. PSYCH: Normal mood and affect. Course Course Emergency Course: This is a 39-year-old male who presented for evaluation of right upper dental pain. Will discharge with penicillin. Tylenol is controlling his pain. Follow-up with dentist. Go to the ER for worsening symptoms. Patient in agreement with plan of care. Level of Care: Express Care Visit Vital Signs Vital signs: Vital Signs Temperature 36.3 C L 11/22/24 19:41 Pulse Rate 69 11/22/24 19:41 Respiratory Rate 18 11/22/24 19:41 Blood Pressure 141/83 H 11/22/24 19:41 Pulse Oximetry 100 11/22/24 19:41 Oxygen Delivery Room Air 11/22/24 19:41 Temperature 36.3 C L 11/22/24 19:41 Pulse Rate 69 11/22/24 19:41 Respiratory Rate 18 11/22/24 19:41 Blood Pressure 141/83 H 11/22/24 19:41 Pulse Oximetry 100 11/22/24 19:41 Oxygen Delivery Room Air 11/22/24 19:41 Medical Decision Making Vital Signs Vital Signs: Vital Signs Temperature 36.3 C L 11/22/24 19:41 Pulse Rate 69 11/22/24 19:41 Respiratory Rate 18 11/22/24 19:41 Blood Pressure 141/83 H 11/22/24 19:41 Pulse Oximetry 100 11/22/24 19:41 Oxygen Delivery Room Air 11/22/24 19:41 Temperature 36.3 C L 11/22/24 19:41 Pulse Rate 69 11/22/24 19:41 Respiratory Rate 18 11/22/24 19:41 Blood Pressure 141/83 H 11/22/24 19:41 Pulse Oximetry 100 11/22/24 19:41 Oxygen Delivery Room Air 11/22/24 19:41 Discharge Plan Discharge Clinical Impression: Fracture of tooth Patient Disposition: Home Condition: Stable Instructions: Antibiotic Form, Toothache (ED) Patient Language: Kiswahili Prescriptions: New penicillin V potassium 500 mg tablet 500 mg PO Q6H 10 Days Qty: 40 0RF No Action methadone clonidine HCl 0.2 mg tablet 0.2 mg PO DIRECTED Follow-up/Referrals: Harms,Eduardo Samuel M.D. [Primary Care Provider] - Time of Disposition: 19:50
== END 2024-11-22 19:53 | disposition home or self-care (01) ==
PROVIDERS: Emergency Provider Nurse Practitioner; PCP Family Medicine
DX: S02.5XXA Fracture of tooth (traumatic), initial encounter for closed fracture (principal); X58.XXXA Exposure to other specified factors, initial encounter; F12.90 Cannabis use, unspecified, uncomplicated; Z86.74 Personal history of sudden cardiac arrest
CPT/HCPCS: 99213; G0463